=== PATIENT | female | born 1970 | race Caucasian/White ===

== ENCOUNTER 2024-05-03 09:27 | Emergency (ER) | payer BC, SELFPAY ==
[2024-05-03] VITALS (13 sets, daily range): BP systolic 115–136; BP diastolic 80–92; PULSE 74–99; RESP 16; TEMP 36.9; O2SAT 96–100; BMI 30.1
--- NOTE | 2024-05-03 09:49 | CRLHL7_ITS ---
For Patients: As a result of the Century Cures Act, medical imaging exams and procedure reports are released immediately into your electronic medical record. You may view this report before your referring provider. If you have questions, please contact your health care provider. Indication: Chest pain Technique: PA and lateral views of the chest. Comparison: None. Findings: Normal cardiomediastinal silhouette. No focal consolidation, pleural effusions, or visualized pneumothorax. Mild biapical pleural-parenchymal scarring. Right upper quadrant abdominal surgical clips. Impression: No acute cardiopulmonary disease. Dictated by David Nava MD @ 05/03/2024 10:11:18 AM (Electronically Signed)
--- NOTE | 2024-05-03 09:50 | ED.GENADULT ---
HPI - General Adult General Chief complaint: Chest Pain Stated complaint: Chest pain, shortness of breath, dizzy Time Seen by Provider: 05/03/24 09:33 Source: patient Mode of arrival: ambulatory Limitations: no limitations History of Present Illness HPI narrative: 54-year-old female coming in today complaining of chest pain that started approximately 2-3 hours ago. Patient woke up without any problems and then slowly started feeling left-sided chest pain has been present since. Nothing seems to make it better, taking deep breaths makes it worse. She does feel slightly short of breath. She denies feeling diaphoretic. She states that she does feel slightly lightheaded. Patient denies any nausea or vomiting. She denies any recent illness, no recent travel. Past medical history significant for anxiety, vitamin-D deficiency. Patient takes vitamin-D supplementation. He does not take any medication for anxiety. Past surgical history significant for hysterectomy for benign reasons and cholecystectomy. Grandmother had coronary artery disease congestive heart failure in her 50s. Patient denies any tobacco use. Rare alcohol use. She does not exercise regularly. She did not notice her chest pain change going up and down the stairs in her home today. Related Data Home Medications ?Medication ?Instructions ?Recorded ?Confirmed No Known Home Medications 05/03/24 05/03/24 Allergies Allergy/AdvReac Type Severity Reaction Status Date / Time No Known Drug Allergies Allergy Verified 05/03/24 09:39 Review of Systems Status of ROS: Reports: 10 or more systems reviewed and unremarkable except as noted in History and below [facility] Social History Smoking Status: Never smoker How often do you have a drink containing alcohol: monthly or less How often do you have six or more drinks on one occasion: Never AUDIT-C Alcohol total score: 1 Non-prescribed substance use: denies use Exam Narrative: Exam Narrative: Well-nourished well-developed patient in no acute distress. Alert and oriented. Answers questions appropriately. Mood and affect are appropriate. Thoughts are goal oriented and rational. No tangential or magical thinking noted. Patient speaks in full sentences without needing to catch her breath. Patient is not appear uncomfortable, ill or toxic. HEENT: Normocephalic atraumatic. Pupils are equally round reactive to light. Extraocular muscles are intact. Conjunctivae are moist without any icterus noted. Moist mucous membranes. Posterior pharynx is normal. Neck is soft without any lymphadenopathy or thyromegaly. No masses are appreciated. Cardiovascular: Heart is regular rate and rhythm S1 and S2 are present without any murmurs. Lungs: Clear to auscultation bilaterally no wheezes rhonchi or rales are appreciated. Patient has mild discomfort over the left sternal border with deep breaths. Her pain can be reproduced with palpation of the same area. Abdomen: Soft and nontender nondistended with normal bowel sounds. No guarding or rebound. No masses or organomegaly appreciated. Extremities: Bilateral lower extremities are without edema. Normal DP and PT pulses. Skin: Well perfused without any obvious rashes. Const: Vital Signs, click to edit/add: Vital Signs - 24 hr 05/03/24 09:39 05/03/24 09:51 05/03/24 10:03 Temperature 98.4 F Pulse Rate 99 86 Pulse Rate [Pulse Oximeter] 91 Respiratory Rate 16 Blood Pressure Blood Pressure [Ri ght Upper Arm] 136/92 H Pulse Oximetry 97 97 96 Oxygen Delivery Me thod Room Air 05/03/24 10:04 05/03/24 10:15 05/03/24 10:15 Temperature Pulse Rate 91 83 Pulse Rate [Pulse Oximeter] Respiratory Rate Blood Pressure 133/88 Blood Pressure [Ri ght Upper Arm] Pulse Oximetry 98 96 98 Oxygen Delivery Me thod 05/03/24 10:30 05/03/24 10:32 05/03/24 10:45 Temperature Pulse Rate 74 80 84 Pulse Rate [Pulse Oximeter] Respiratory Rate Blood Pressure 115/80 Blood Pressure [Ri ght Upper Arm] Pulse Oximetry 97 97 100 Oxygen Delivery Me thod 05/03/24 11:00 05/03/24 11:01 05/03/24 11:15 Temperature Pulse Rate 77 80 84 Pulse Rate [Pulse Oximeter] Respiratory Rate Blood Pressure 121/83 Blood Pressure [Ri ght Upper Arm] Pulse Oximetry 98 99 99 Oxygen Delivery Me thod 05/03/24 11:30 05/03/24 11:32 Temperature Pulse Rate 89 86 Pulse Rate [Pulse Oximeter] Respiratory Rate 16 Blood Pressure 119/80 Blood Pressure [Ri ght Upper Arm] Pulse Oximetry 99 99 Oxygen Delivery Me thod Course Course ED Course: EKG, read by me, shows normal sinus rhythm with a pulse of 82. Chest x-ray, read by me, does not show any acute pathology. Lab work was unremarkable. Troponin was normal. Repeat EKG and troponin unchanged. Vital Signs Vital signs: Initial Vital Signs Temperature 98.4 F 05/03/24 09:39 Temperature Source Temporal Artery Scan 05/03/24 09:39 Pulse Rate 91 05/03/24 09:39 Respiratory Rate 16 05/03/24 09:39 Blood Pressure 136/92 H 05/03/24 09:39 Blood Pressure Mean 106 H 05/03/24 09:39 Pulse Oximetry 97 05/03/24 09:39 Oxygen Delivery Method Room Air 05/03/24 09:39 Vital Signs Temperature 98.4 F 05/03/24 09:39 Pulse Rate 91 05/03/24 09:39 Respiratory Rate 16 05/03/24 09:39 Blood Pressure 136/92 H 05/03/24 09:39 Pulse Oximetry 97 05/03/24 09:39 Oxygen Delivery Method Room Air 05/03/24 09:39 Temperature 98.4 F 05/03/24 09:39 Pulse Rate 86 05/03/24 11:32 Respiratory Rate 16 05/03/24 11:32 Blood Pressure 119/80 05/03/24 11:32 Pulse Oximetry 99 05/03/24 11:32 Oxygen Delivery Method Room Air 05/03/24 09:39 Medical Decision Making MDM Narrative Medical decision making narrative: 54-year-old female with chest pain, likely chest wall pain given her symptoms and physical exams. We discussed symptomatic treatment with heat, NSAIDs and reasons for follow-up. Lab Data Lab results reviewed: Yes I reviewed the patient's lab results Labs: Lab Results 05/03/24 05/03/24 05/03/24 Range/Units 09:50 09:55 10:12 WBC 3.09 L (4.50-11.00) K/uL RBC 4.66 (4.00-5.20) m/uL Hgb 14.0 (12.0-16.0) gm/dL Hct 42.1 (33.0-51.0) % MCV 90 (80-100) fL MCH 30 (26-34) pg MCHC 33 (32-36) gm/dL RDW Coeff of Nathalie 12.7 (11.5-15.5) % Plt Count 183 (140-440) K/uL Neut % (Auto) 57.6 (42.0-72.0) % Lymph % (Auto) 28.2 (20-44) % [place] % (Auto) 12.0 H (0.0-11.0) % Eos % (Auto) 1.6 (0.0-7.0) % Baso % (Auto) 0.6 (0.0-3.0) % Neut # (Auto) 1.80 (1.7-7.0) K/uL Lymph # (Auto) 0.90 (0.90-2.90) K/uL [place] # (Auto) 0.40 (0.00-0.90) K/UL Eos # (Auto) 0.00 (0.00-0.50) K/uL Baso # (Auto) 0.00 (0.00-0.30) K/uL Abs Immat Gran (auto) 0.00 (0.00-0.30) K/uL Imm/Tot Granulo (auto) 0.0 % ESR 6 (2-20) mm/hr D-Dimer Quant (PE/DVT) 0.28 (0.00-0.50) ug/ml Sodium 139 (135-149) mmol/L Potassium 4.1 (3.6-5.1) mmol/L Chloride 107 (96-114) mmol/L Carbon Dioxide 27 (20-32) mmol/L Anion Gap 5 L (7-15) mEq/L BUN 18 (7-30) mg/dL Creatinine 0.7 (0.5-1.5) mg/dL Estimated Creat Clear 97.04 Estimated GFR 101 ml/min Glucose 101 (60-115) mg/dL Lactate 0.7 (0.5-1.9) mmol/L Calcium 9.4 (8.4-10.6) mg/dL Total Bilirubin 0.7 (0.1-1.5) mg/dL Direct Bilirubin 0.2 (0.0-0.5) mg/dL AST 30 (12-35) U/L ALT 28 (4-35) U/L Alkaline Phosphatase 71 (40-150) U/L Troponin I < 0.01 L (0.01-0.04) ng/mL C-Reactive Protein < 0.5 L (0.5-1.0) mg/dL Total Protein 7.1 (6.0-8.3) g/dL Albumin 4.5 (3.3-5.0) g/dL SARS-CoV-2 (PCR) Negative SARS-CoV-2 (Negative) POC Troponin I 0.00 L (0.01-0.04) ng/ml 05/03/24 Range/Units 11:30 WBC (4.50-11.00) K/uL RBC (4.00-5.20) m/uL Hgb (12.0-16.0) gm/dL Hct (33.0-51.0) % MCV (80-100) fL MCH (26-34) pg MCHC (32-36) gm/dL RDW Coeff of Nathalie (11.5-15.5) % Plt Count (140-440) K/uL Neut % (Auto) (42.0-72.0) % Lymph % (Auto) (20-44) % [place] % (Auto) (0.0-11.0) % Eos % (Auto) (0.0-7.0) % Baso % (Auto) (0.0-3.0) % Neut # (Auto) (1.7-7.0) K/uL Lymph # (Auto) (0.90-2.90) K/uL [place] # (Auto) (0.00-0.90) K/UL Eos # (Auto) (0.00-0.50) K/uL Baso # (Auto) (0.00-0.30) K/uL Abs Immat Gran (auto) (0.00-0.30) K/uL Imm/Tot Granulo (auto) % ESR (2-20) mm/hr D-Dimer Quant (PE/DVT) (0.00-0.50) ug/ml Sodium (135-149) mmol/L Potassium (3.6-5.1) mmol/L Chloride (96-114) mmol/L Carbon Dioxide (20-32) mmol/L Anion Gap (7-15) mEq/L BUN (7-30) mg/dL Creatinine (0.5-1.5) mg/dL Estimated Creat Clear Estimated GFR ml/min Glucose (60-115) mg/dL Lactate (0.5-1.9) mmol/L Calcium (8.4-10.6) mg/dL Total Bilirubin (0.1-1.5) mg/dL Direct Bilirubin (0.0-0.5) mg/dL AST (12-35) U/L ALT (4-35) U/L Alkaline Phosphatase (40-150) U/L Troponin I (0.01-0.04) ng/mL C-Reactive Protein (0.5-1.0) mg/dL Total Protein (6.0-8.3) g/dL Albumin (3.3-5.0) g/dL SARS-CoV-2 (PCR) (Negative) POC Troponin I 0.00 L (0.01-0.04) ng/ml Imaging Data Chest x-ray: Attestation: I have reviewed the pertinent imaging results. Radiologist's impression: Chest pain Technique: PA and lateral views of the chest. Comparison: None. Findings: Normal cardiomediastinal silhouette. No focal consolidation, pleural effusions, or visualized pneumothorax. Mild biapical pleural-parenchymal scarring. Right upper quadrant abdominal surgical clips. Impression: No acute cardiopulmonary disease. ECG Data Attestation: I personally reviewed and interpreted this ECG as follows: Discharge Plan Discharge Clinical Impression: Acute chest wall pain Patient Disposition: Home, Self-Care Condition: Stable Additional Instructions: Your workup was unremarkable today. Likely your pain is coming from an inflammation of the chest wall. Recommend ibuprofen as needed/as directed and heat to the chest wall as needed. Do not apply heat directly to the skin. Prescriptions: No Action No Known Home Medications Follow Up/Referrals: Jessi Marley MD [Staff Physician] - Stand Alone Forms: [employer] Info Instructions
[2024-05-03 10:20] LABS: Lactate* 0.7 mmol/L (0.5-1.9)
[2024-05-03 10:21] LABS: Basophils Percent Auto 0.6 % (0.0-3.0); Eosinophils Percent Auto 1.6 % (0.0-7.0); Hematocrit 42.1 % (33.0-51.0); Lymphocytes Percent Auto 28.2 % (20-44); Mean Corpuscular HGB Conc 33 gm/dL (32-36); Mean Corpuscular Hemoglobin 30 pg (26-34); Mean Corpuscular Volume 90 fL (80-100); Neutrophils Percent Auto 57.6 % (42.0-72.0); Platelet Count* 183 K/uL (140-440); RDW Coefficient of Variation % 12.7 % (11.5-15.5); Red Blood Count 4.66 m/uL (4.00-5.20); White Blood Count* 3.09 K/uL (4.50-11.00)
[2024-05-03 10:26] LABS: Slide Review Reflex No
--- OUTSIDE RECORDS SUMMARY | 2024-05-03 10:26 | XMS_ITS | Referral Summary ---
Author Organization [facility] Address [address] [place] [address] Care Team Providers Care Cut Off Saw Set Up Operator Name Role Phone David Rossi MD Primary Care Provider [phone] Encounters Date Type Department Care Team Description 04/11/2024 Travel 04/11/2024 3:51 PM CDT - 04/11/2024 11:59 PM CDT Hospital Encounter [facility] [address] [facility], [address] [place] [phone] David Rossi MD Visit for screening mammogram Discharge Disposition: Home or Self Care from Last 3 Months Allergies No known active allergies Social History Tobacco Use Types Packs/Day Years Used Date Smoking Tobacco: Never Assessed Adolescent Education Answer Date Record ed Getting School Help Needed Not on file 05/13 Sex and Gender Information Value Date Recorded Sex Assigned at Not on file Gender Identity Not on file Sexual Orientation Not on file Last Filed Vital Signs Vital Sign Reading Time Taken Comments Blood Pressure 139/87 02/22/2023 3:12 PM CDT Pulse 68 02/22/2023 3:12 PM CDT Temperature 36.3 ??C (97.4 ??F) 02/22/2023 1 0:41 AM CDT Respiratory Rate 18 02/22/2023 10:4 1 AM CDT Oxygen Saturation 98% 02/22/2023 3:14 PM CDT Inhaled Oxygen Concentration - - Weight 70.2 kg (154 lb 12.2 oz) 023 10:41 AM CDT Height - - Body Mass Index - - Plan of Treatment Not on file Procedures Procedure Name Priority Date/Time Associated Diagnosis Comments MA SCREENING BILATERAL W/ ALICIA Routine 04/11/2024 4:08 PM CDT Visit for screening mammogram GYNECOLOGIC CYTOLOGY Routine 05/22/2023 3:53 PM CDT Encounter for gynecological examination (general) (routine) without abnormal findings HPV HIGH RISK TYPES DNA CERVICAL Routine 05/22/2023 3:53 PM CDT Encounter for gynecological examination (general) (routine) without abnormal findings BASIC METABOLIC PANEL STAT 02/22/2023 10:56 AM CDT from Last 3 Months or Most Recently Relevant to Health Maintenance Results * MA Screen Bilateral w/Alicia (04/11/2024 4:08 PM CDT) Anatomical Region Laterality Modality Breast Bilateral Mammography Impressions 04/12/2024 7:29 AM CDT IMPRESSION: ACR BI-RADS Category 1: Negative BREAST CANCER SCREENING RECOMMENDATION: Routine yearly mammography beginning at age 40 or as discussed with your provider. The results and recommendations of this examination will be communicated to the patient. Lincoln Velasco MD Narrative 04/12/2024 7:29 AM CDT BILATERAL FULL FIELD DIGITAL SCREENING MAMMOGRAM WITH TOMOSYNTHESIS Performed on: 04/11/24 Compared to: 04/04/2023, 03/31/2022, and 04/05/2021 Technique: ??This study was evaluated with the assistance of Computer-Aided Detection. ??Breast Tomosynthesis was used in interpretation. Findings: The breasts are heterogeneously dense, which may obscure small masses. ??There is no radiographic evidence of malignancy. David Rossi MD IMG MAMMOGRAPHY ABDULAZIZ GIBSON * Gynecologic Cytology (PAP) (05/22/2023 3:53 PM CDT) Interpretation Negative for Intraepithelial Lesion or Malignancy (NILM) 05/24/2023 1:24 PM CDT [facility] Comment Papanicolaou Test Limitations: Cervical cytology is a screening test with limited sensitivity, and regular screening is critical for cancer prevention. Pap tests are primarily effective for the diagnosis/prevent ion of squamous cell carcinoma, not adenocarcinoma or other cancers. 05/24/2023 1:24 PM CDT [facility] Specimen Adequacy Satisfactory for evaluation, endocervical/bermudez sformation zone component absent 05/24/2023 1:24 PM CDT [facility] Clinical Information none 05/24/2023 1:24 PM CDT [facility] LMP/Menopause Date 05/24/2023 1:24 PM CDT [facility] Reflex Testing Yes regardless of result 05/24/2023 1:24 PM CDT [facility] Previous Abnormal? No 05/24/2023 1:24 PM CDT [facility] Previous Abnormal Diagnosis neg/neg hpv 05/24/2023 1:24 PM CDT [facility] Performing Labs The technical component of this testing was completed at [facility] 05/24/2023 1:24 PM CDT [facility] Brushing ENDOCERVICAL STRUCTURE / Unknown 05/22/2023 3:53 PM CDT 05/22/2023 9:02 PM CDT David [facility] - [facility] Special[facility] Lab [address] [facility], [address] [id number], [facility] [phone] * HPV High Risk Types DNA Cervical (05/22/2023 3:53 PM CDT) Other HR HPV Negative Negative 05/27/2023 10:00 AM CDT [facility] HPV16 DNA Negative Negative 05/27/2023 10:00 AM CDT [facility] HPV18 DNA Negative Negative 05/27/2023 10:00 AM CDT [facility] FINAL DIAGNOSIS This patient's sample is negative for HPV DNA. This test was developed and its performance characteristics determined by the [facility], [facility]. It has not been cleared or approved by the FDA. The laboratory is regulated under CLIA as qualified to perform high-complexity testing. This test is used for clinical purposes. It should not be regarded as investigational or for research. METHODOLOGY: The Valentin Jameson 4800 system uses automated extraction, simultaneous amplification of HPV (L1 region) and beta-globin, followed by real time detection of fluorescent labeled HPV and beta globin using specific oligonucleotide probes. The test specifically identifies types HPV 16 DNA and HPV 18 DNA while concurrently detecting the rest of the high risk types (31, 33, 35, 39, 45, 51, 52, 56, 58, 59, 66 or 68). COMMENTS: This test is not intended for use as a screening device for woman under age 30 with normal cervical cytology. Results should be correlated with cytologic and histologic findings. Close clinical followup is recommended. 05/27/2023 10:00 AM CDT [facility] Brushing ENDOCERVICAL STRUCTURE / Unknown Non-blood Collection / Unknown 05/22/2023 3:53 PM CDT 05/25/2023 9:10 AM CDT David Rossi MD LAB - BLOOD ORDERABL ES [facility] [address] [facility], [address] [place] [id number], [facility] [phone] * Basic metabolic panel (BMP) (02/22/2023 10:56 AM CDT) Sodium 140 136 - 145 mmol/L 02/22/2023 11:30 AM CDT LABORATORY Potassium 3.8 3.4 - 5.3 mmol/L 02/22/2023 11:30 AM CDT [facility] Chloride 102 98 - 107 mmol/L 02/22/2023 11:30 AM CDT [facility] Carbon Dioxide (CO2) 26 22 - 29 mmol/L 02/22/2023 11:30 AM CDT [facility] Anion Gap 12 7 - 15 mmol/L 02/22/2023 11:30 AM CDT [facility] Urea Nitrogen 14.3 6.0 - 20.0 mg/dL 02/22/2023 11:30 AM CDT [facility] Creatinine 0.75 0.51 - 0.95 mg/dL 02/22/2023 11:30 AM CDT [facility] Calcium 9.3 8.6 - 10.0 mg/dL 02/22/2023 11:30 AM CDT [facility] Glucose 95 70 - 99 mg/dL 02/22/2023 11:30 AM CDT [facility] GFR Estimate >90 >60 mL/min/1.7 3m2 02/22/2023 11:30 AM CDT [facility] Blood STRUCTURE OF RIGHT UPPER LIMB / Unknown Venipuncture / Unknown 02/22/2023 10:56 AM CDT 02/22/2023 11:04 AM CDT Babs Bales MD LAB - BLOOD ORDERABL ES [facility] [address] (1st floor, no room number) [place] [address], [facility] [phone] from Last 3 Months or Most Recently Relevant to Health Maintenance Care Teams Cut Off Saw Set Up Operator Relationship Specialty Start Date End Date David Rossi MD [address] [place] [address] PCP - General stringed instrument tuner 05/31/16
--- OUTSIDE RECORDS SUMMARY | 2024-05-03 10:26 | XMS_ITS | Clinical Summary ---
Author Organization [facility] Address [address] [place] [address] Care Team Providers Care Return Clerk Name Role Phone David Rossi MD Primary Care Provider [phone] Allergies No known active allergies Encounters Date Type Department Care Team Description 04/11/2024 3:51 PM CDT - 04/11/2024 11:59 PM CDT Hospital Encounter [facility] [address] [facility], [address] [place] [phone] David Rossi MD Visit for screening mammogram Discharge Disposition: Home or Self Care 04/11/2024 Travel from Last 3 Months Social History Tobacco Use Types Packs/Day Years [...] Mass Index - - Plan of Treatment Health Maintenance Due Date Last Done Comments ADVANCE CARE PLANNING 1968 ANNUAL REVIEW OF HM ORDERS 1968 CT COLONOGRAPHY 1968 FLEX SIG 1968 sDNA (Cologuard) 1968 HIV SCREENING 1983 HEPATITIS C SCREENING 1986 HEPATITIS B IMMUNIZATION (1 of 3 - 19+ 3-dose series) 1987 LIPID 2008 FIT 11/09/2012 11/10/2011 ZOSTER IMMUNIZATION (1 of 2) 2018 YEARLY PREVENTIVE VISIT 04/25/2023 04/25/20 22, 04/15/2021, 03/09/2020 PHQ-2 (once per calendar year) 2023 COVID-19 Vaccine ( season) 2024 INFLUENZA VACCINE (#1) 2024 6, 05/20/2015, 07/03/2014, Additional history exists GLUCOSE 02/22/2026 02/22/2023 MAMMO SCREENING 04/11/2026 04/11/2024, 03/15, 03/31/2022, Additional history exists DTAP/TDAP/TD IMMUNIZATION (3 - Td or Tdap) 09/14/2026 09/14/2016, 03/15/2006, 06/28/1999 HPV TEST 05/22/2028 05/22/2023, 02/12, 03/09/2020 PAP 05/22/2028 05/22/2023, 02/12, 03/09/2020 COLONOSCOPY 04/03/2030 04/03/2020, 03/31/2020 COLORECTAL CANCER SCREENING 04/03/2030 HPV IMMUNIZATION Aged Out No longer e ligible based on patient's age to complete this topic MENINGITIS IMMUNIZATION Aged Out No l onger eligible based on patient's age to complete this topic Pneumococcal Vaccine: Pediatrics (0 to 5 Years) and At-Risk Patients (6 to 64 Years) Aged Out No longer eligible based on patient's age to complete this topic RSV MONOCLONAL ANTIBODY Aged Out No l onger eligible based on patient's age to complete this topic Procedures Procedure Name Priority Date/Time Associated Diagnosis Comments MA SCREENING BILATERAL W/ ALICAI Routine 04/11/2024 4:08 PM CDT Visit for [...] component of this testing was completed at [facility] 05/24/2023 1:24 PM CDT [facility] Brushing ENDOCERVICAL STRUCTURE / Unknown 05/22/2023 3:53 PM CDT 05/22/2023 9:02 PM CDT David KC - [facility] Specialty Lab [address] [facility], [address] [phone], [place] [phone] * HPV High Risk Types DNA Cervical (05/22/2023 3:53 PM CDT) Other HR HPV Negative Negative 05/27/2023 10:00 AM CDT [facility] HPV16 DNA Negative Negative 05/27/2023 10:00 AM CDT [facility] HPV18 DNA Negative Negative 05/27/2023 10:00 AM CDT [facility] FINAL DIAGNOSIS This patient's sample is negative for HPV DNA. This test was developed and its performance characteristics determined by the [facility], [facility]. It has not been [...] followup is recommended. 05/27/2023 10:00 AM CDT [email or web address] Brushing ENDOCERVICAL STRUCTURE / Unknown Non-blood Collection / Unknown 05/22/2023 3:53 PM CDT 05/25/2023 9:10 AM CDT David Rossi MD LAB - BLOOD ORDERABL ES [email or web address] [address] [facility], [address] [place] [id number] [phone] * Basic metabolic panel (BMP) (02/22/2023 10:56 AM CDT) Sodium 140 136 - 145 mmol/L 02/22/2023 11:30 AM CDT LABORATORY Potassium 3.8 3.4 - 5.3 mmol/L 02/22/2023 11:30 AM CDT LABORATORY Chloride 102 98 - 107 mmol/L 02/22/2023 11:30 AM CDT LABORATORY Carbon Dioxide (CO2) 26 22 - 29 mmol/L 02/22/2023 11:30 AM CDT LABORATORY Anion Gap 12 7 - 15 mmol/L 02/22/2023 11:30 AM CDT [facility] Urea Nitrogen 14.3 6.0 - 20.0 mg/dL 02/22/2023 11:30 AM CDT LABORATORY Creatinine 0.75 0.51 - 0.95 mg/dL 02/22/2023 11:30 AM CDT LABORATORY Calcium 9.3 8.6 - 10.0 mg/dL [...] LAB - BLOOD ORDERABL ES [facility] [address] [facility] Lab (1st floor, no room number) [place] [address], [place] [phone] from Last 3 Months or Most Recently Relevant to Health Maintenance Care Teams Return Clerk Relationship Specialty Start Date End Date David Rossi MD [address] [facility] [address] [place] [phone] PCP - General spot welder 05/31/16
--- OUTSIDE RECORDS SUMMARY | 2024-05-03 10:26 | XMS_ITS | Clinical Summary ---
Author Organization [facility] Address [place], [place] [address] Care Team Providers Care Security Installation Technician Name Role Phone [facility] Primary Care Provider Unavailabl e Allergies Active Allergy Reactions Criticality Noted Date Comments Amoxicillin-Pot Clavulanate Diarrhea 11/08/19 09 Esomeprazole Diarrhea 11/10/2008 Omeprazole Diarrhea 06/16/2023 Oxycodone Insomnia 06/01/2010 Medications Medication Sig Dispensed Refills Start Date End Date Status cholecalciferol, Vitamin D3, (Vitamin D-3) 5,000 unit tab tablet Active famotidine (PEPCID) 20 mg tabletIndications:Chr onic GERD Take 1 Tablet (20 mg) by mouth two times daily. 180 Tablet 3 02/02/2023 Active RABEprazole (ACIPHEX) 20 mg tabletIndications:Chr onic GERD Take 1 Tablet (20 mg) by mouth once daily. 100 Tablet 3 02/02/2023 Active Active Problems Problem Noted Date Diagnosed Date Low back pain radiating to left leg 01/29/2015 Displacement of cervical int ervertebral disc without myelopathy 08/20/2012 Cervical radiculitis 08/20/2012 Vitamin D deficiency 06/01/2010 Esophageal reflux 01/26/2007 Sciatica 01/26/2007 Anxiety state, unspecified 01/10/2007 Major depressive disorder, r ecurrent episode, in full remission 12/26/2006 FATIGUE AND MALAISE Resolved Problems Problem Noted Date Diagnosed Date Resolved Date UPPER RESPIRATORY INFECTION - ACUTE 09/12/2005 12/27/2005 EXAMINATION, ROUTINE MEDICAL 08/28/2002 12/27/2005 Encounters Date Type Department Care Team Description 03/14/2024 1:00 PM CDT Ancillary Procedure [facility] [address] [facility] [place] [address] 03/14/2024 12:30 PM CDT Ancillary Procedure [facility] [address] [place] [address] 03/14/2024 Travel 03/05/2024 Transcribe Orders [facility] [address] [place] [address] Manjinder Monterroso MD 02/01/2024 10:57 AM CDT - 02/01/2024 11:59 PM CDT Hospital Encounter [facility] [place] [address] [facility] [address] [place] [address] Manjinder Monterroso MD Lonetti, Jennifer D, PT 02/01/2024 Travel from Last 3 Months Immunizations Name Administration Dates Next Due AMB Influenza, IIV3 (Age >=3 years)(Flu Clinic Only) 06/10/2011 Influenza Virus, Unspecified 09/17/2020( Deferred: Patient Refused),05/22/2016,07/03/2014 Influenza, IIV3 (Age 6-35 mos) 06/10/2011 Influenza, IIV3 (Age >=3 years) 07/04/2012,06/01,07/01/2008 Influenza, IIV4 05/20/2015 Rabavert 03/21/2022,,03/10/2022,2021 Td (Age >=7 Years) 09/14/2016,06/28/1999 Tdap 03/15/2006 Family History Medical History Relation Name Comments GI Disease Father Diverticulitis Hypertension Father Stroke Maternal Grandfather Heart failure Maternal Grandmother GI Disease Mother IBS Stroke Paternal Grandfather Hypertension Paternal Grandmother Lung cancer Paternal Grandmother Relation Name Status Comments Father Alive Half-Brother Alive Maternal Grandfather Maternal Grandmother Mother Alive Paternal Grandfather Paternal Grandmother Sister Alive Social History Tobacco Use Types Packs/Day Years Used Date Smoking Tobacco: Never Smokeless Tobacco: Never Tobacco Cessation:Counseling Given: Not Answered Alcohol Use Standard Drinks/Week Comments Not Currently 0 (1 standard drink = 0.6 oz pur e alcohol) rare PHQ-2 Answer Date Recorded PHQ-2 TOTAL SCORE 0 02/02/2023 Social Connections Answer Date Recorded Frequency of Communication with Friends and Fami ly Not on file 08/14/2021 Financial Resource Strain Answer Date R ecorded Difficulty of Paying Living Expenses Not on file 08/14/2021 Difficulty of Paying Living Expenses Not on file 08/14/2021 Sex and Gender Information Value Date Recorded Sex Assigned at Not on file Gender Identity Not on file Sexual Orientation Not on file Obstetrics History Para Term AB IAB SAB Ectopic Multiple Livin g Live Births 3 3 3 0 0 0 0 0 0 3 Date Outcome GA Total Labor Labor//3rd Weight Sex Type Anes PTL Elvira A1 A5 Name Clin Term Term Term Last Filed Vital Signs Vital Sign Reading Time Taken Comments Blood Pressure 116/75 06/16/2023 3:30 PM CDT Pulse 75 06/16/2023 3:30 PM CDT Temperature 36.8 ??C (98.3 ??F) 03/07/2022 3:27 PM CD T Respiratory Rate 14 05/19/2023 10:30 AM CDT Oxygen Saturation 97% 06/16/2023 3:30 PM CDT Inhaled Oxygen Concentration - - Weight 69 kg (152 lb 1.9 oz) 06/16/2023 3:30 PM CDT Height 163.2 cm (5' 4.25) 02/02/2023 1:19 PM CD T Body Mass Index 25.91 02/02/2023 1:19 PM CDT Plan of Treatment Health Maintenance Due Date Last Done Comments HIV for age 15-65 1983 Zoster (shingles) series for age 50+ (1 of 2) 2018 Mammogram for age 45-75 03/31/2023 03/31/20 (Verified in Care Everywhere or Patient Record), 04/05/2021 (Verified in Care Everywhere or Patient Record), 08/29/2018, Additional history exists BMI (ht and wt on same day) for age 18+ 02/03/2024 02/02/2023, 02/22/2022, 12/31/2021, Additional history exists Depression screening for age 12+ 02/04/2024 02/03/2023, 02/02/2023, 09/18/2020, Additional history exists COVID-19 vaccine series (2022- season) 2024 Influenza for age 50-64 04/14/2024 05/22/20 16, 05/20/2015, 07/03/2014, Additional history exists Tetanus booster 09/14/2026 09/14/2016, 08/2016 (Completed outside of [facility]), 03/15/2006, Additional history exists Lipids for age 45-75 02/16/2028 02/15/2023, 02/22/2022, 09/14/2018 (Completed outside of [facility]), Additional history exists Colonoscopy through age 75 04/03/203004/03, 04/03/2020, 04/03/2020, Additional history exists Tdap Completed 03/15/2006 Pap test for age 21-65 Discontinued 1 (Completed outside of [facility]) Fecal testing non-DNA (FIT,FOBT,iFOBT) for age 45-75 Discontinued 11/10/2011, 07/19/2004, 07/19/2004, Additional history exists Hepatitis C screening for age 18-79 Completed 02/22/2022 Pneumococcal series for age 6-64 Aged Out No longer eligible based on patient's age to complete this topic Procedures Procedure Name Priority Date/Time Associated Diagnosis Comments MR SPINE LUMBAR WO Routine 03/14/2024 1: 26 PM CDT Tarsal tunnel syndrome, left lower limb Other instability, left ankle Sprain of left ankle, unspecified ligament, subsequent encounter Plantar fascial fibromatosis Disorder of ligament, left foot Disorder of ligament, right foot Tarsal tunnel syndrome, right lower limb XR SPINE LUMBAR MINIMUM 4 VIEWS Routine 03/14/2024 12:29 PM CDT Tarsal tunnel syndrome, left lower limb Other instability, left ankle Sprain of left ankle, unspecified ligament, subsequent encounter Plantar fascial fibromatosis Disorder of ligament, left foot Disorder of ligament, right foot Tarsal tunnel syndrome, right lower limb LIPID PANEL W REFLEX MEASURED LDL Routine 02/15/2023 8:31 AM CDT Lipid screening ANTI HCV Routine 02/22/2022 8:47 AM CDT Need for hepatitis C screening test COLONOSCOPY SCREENING Routine 04/03/2020 9:27 AM CDT Encounter for screening colonoscopy SCAN-MAMMOGRAPHY REPORT 08/29/2018 12:00 AM INDUSTRIAL HEALTH ENGINEER OCCULT BLOOD IFOBT STOOL Routine 11/10/2011 2:42 PM CDT Abdominal pain, epigastric from Last 3 Months or Most Recently Relevant to Health Maintenance Results * MR SPINE LUMBAR WO (03/14/2024 1:26 PM CDT) Anatomical Region Laterality Modality Spine, LUMBAR SPINE Magnetic Res onance 03/14/2024 1:26 PM CDT Impressions 03/15/2024 8:05 AM CDT 1. ??Mild narrowing of the lateral recesses at L4-L5. 2. ??No high-grade spinal canal or neuroforaminal narrowing. 3. ??Modic type II changes at L4-L5. Narrative 03/15/2024 8:05 AM CDT For Patients: As a result of the Century Cures Act, medical imaging exams and procedure reports are released immediately into your electronic medical record. You may view this report before your referring provider. If you have questions, please contact your health care provider. EXAM: MR SPINE LUMBAR WO LOCATION: [facility] DATE: 03/14/2024 INDICATION: Tarsal Tunnel Syndrome, Left Lower Limb Other Instability, Left Ankle Sprain Of Left Ankle, Unspecified Ligament, Subsequent Encounter Plantar Fascial Fibromatosis Disorder Of Ligament, Left Foot Disorder Of Ligament, Right Foot Tarsal Tunnel Syndrom COMPARISON: 03/14/24 XR, 01/29/2015 XR TECHNIQUE: Routine Lumbar Spine MRI without IV contrast. FINDINGS: Nomenclature is based on 5 lumbar type vertebral bodies. The conus ends at distal L1. Normal sagittal alignment. Vertebral body heights are maintained. Nonpathologic marrow signal. No MRI evidence for pars defects. Modic type II changes at L4-L5. The posterior paraspinal soft tissues are grossly within normal limits. The visualized bony pelvis grossly within normal limits. T12-L1: Normal disc height and signal. No herniation. Normal facets. No spinal canal or neural foraminal stenosis. L1-L2: Normal disc height and signal. Shallow broad-based disc bulge. Mild bilateral facet arthropathy. No spinal canal or neural foraminal stenosis. L2-L3: Normal disc height and signal. Shallow broad-based disc bulge. Mild bilateral facet arthropathy. No spinal canal or neural foraminal stenosis. L3-L4: Normal disc height and signal. Small broad-based disc bulge. Mild to moderate bilateral facet arthropathy. No spinal canal or neural foraminal stenosis. L4-L5: Moderate intervertebral disc height loss. Loss of the normal T2 signal within the disc. Broad-based disc bulge with superimposed central disc protrusion. Moderate bilateral facet arthropathy. Mild narrowing of the lateral recesses. No spinal canal narrowing. No neuroforaminal narrowing. L5-S1: Normal disc height and signal. Shallow broad-based disc bulge. Moderate bilateral facet arthropathy. No spinal canal or neural foraminal stenosis. Procedure Note Haseeb Pacheco MD - 03/15/2024 For Patients: As a result of the Cures Act, medical imagingexams and procedure reports are released immediately into your electronicmedical record. You may view this report before your referring provider.If you have questions, please contact your health care provider. EXAM: MR SPINE LUMBAR WO LOCATION: [facility] DATE: 03/14/2024 INDICATION: Tarsal Tunnel Syndrome, Left Lower Limb Other Instability,Left Ankle Sprain Of Left Ankle, Unspecified Ligament, SubsequentEncounter Plantar Fascial Fibromatosis Disorder Of Ligament, Left FootDisorder Of Ligament, Right Foot Tarsal Tunnel Syndrom COMPARISON: 03/14/24 XR, 01/29/2015 XR TECHNIQUE: Routine Lumbar Spine MRI without IV contrast. FINDINGS: Nomenclature is based on 5 lumbar type vertebral bodies. The conus ends atdistal L1. Normal sagittal alignment. Vertebral body heights aremaintained. Nonpathologic marrow signal. No MRI evidence for pars defects.Modic type II changes at L4-L5. The posterior paraspinal soft tissues aregrossly within normal limits. The visualized bony pelvis grossly withinnormal limits. T12-L1: Normal disc height and signal. No herniation. Normal facets. Nospinal canal or neural foraminal stenosis. L1-L2: Normal disc height and signal. Shallow broad-based disc bulge. Mildbilateral facet arthropathy. No spinal canal or neural foraminalstenosis. L2-L3: Normal disc height and signal. Shallow broad-based disc bulge. Mildbilateral facet arthropathy. No spinal canal or neural foraminal stenosis. L3-L4: Normal disc height and signal. Small broad-based disc bulge. Mildto moderate bilateral facet arthropathy. No spinal canal or neuralforaminal stenosis. L4-L5: Moderate intervertebral disc height loss. Loss of the normal Y5amtzsi within the disc. Broad-based disc bulge with superimposed centraldisc protrusion. Moderate bilateral facet arthropathy. Mild narrowing ofthe lateral recesses. No spinal canal narrowing. No neuroforaminalnarrowing. L5-S1: Normal disc height and signal. Shallow broad-based disc bulge.Moderate bilateral facet arthropathy. No spinal canal or neural foraminalstenosis. IMPRESSION: 1. Mild narrowing of the lateral recesses at L4-L5. 2. No high-grade spinal canal or neuroforaminal narrowing. 3. Modic type II changes at L4-L5. Manjinder Monterroso MD MR * XR SPINE LUMBAR MINIMUM 4 VIEWS (03/14/2024 12:29 PM CDT) Anatomical Region Laterality Modality Spine, LUMBAR SPINE Computed Rad iography 03/14/2024 12:2 9 PM CDT Impressions 03/14/2024 4:27 PM CDT Preserved vertebral body heights and alignment. No evidence of dynamic instability. Preserved disc spaces for patient age. Nonfocal extraspinal structures. Narrative 03/14/2024 4:27 PM CDT For Patients: As a result of the Century Cures Act, medical imaging exams and procedure reports are released immediately into your electronic medical record. You may view this report before your referring provider. If you have questions, please contact your health care provider. EXAM: XR SPINE LUMBAR MINIMUM 4 VIEWS LOCATION: [facility] DATE: 03/14/2024 INDICATION: Tarsal Tunnel Syndrome, Left Lower Limb Other Instability, Left Ankle Sprain Of Left Ankle, Unspecified Ligament, Subsequent Encounter Plantar Fascial Fibromatosis Disorder Of Ligament, Left Foot Disorder Of Ligament, Right Foot Tarsal Tunnel Syndrome, Right Lower Limb COMPARISON: None. Procedure Note Edmond Hancock, DO - 03/14/2024 For Patients: As a result of the Century Cures Act, medical imagingexams and procedure reports are released immediately into your electronicmedical record. You may view this report before your referring provider.If you have questions, please contact your health care provider. EXAM: XR SPINE LUMBAR MINIMUM 4 VIEWS LOCATION: [facility] DATE: 03/14/2024 INDICATION: Tarsal Tunnel Syndrome, Left Lower Limb Other Instability,Left Ankle Sprain Of Left Ankle, Unspecified Ligament, SubsequentEncounter Plantar Fascial Fibromatosis Disorder Of Ligament, Left FootDisorder Of Ligament, Right Foot Tarsal Tunnel Syndrome, Right LowerLimb COMPARISON: None. IMPRESSION: Preserved vertebral body heights and alignment. No evidence of dynamicinstability. Preserved disc spaces for patient age. Nonfocal extraspinalstructures. Manjinder Monterroso MD GENERAL IMAGI NG * LIPID PANEL W REFLEX MEASURED LDL (02/15/2023 8:31 AM CDT) [facility] CHOLESTEROL,TOTAL 184 100 - 199 mg/dL 02/15/2023 6:39 PM CDT [facility] Comment: Cholesterol, Total Reference Ranges Desirable <200 mg/dL Borderline 200-239 mg/dL High >=240 mg/dL TRIGLYCERIDES 124 <150 mg/dL 02/15/2023 6:39 PM CDT [facility] HDL CHOLESTEROL 58 >40 mg/dL 6:39 PM CDT [facility] NON-HDL CHOLESTEROL 126 <145 mg/dl 02/15/2023 6:39 PM CDT [facility] CHOL/HDL RATIO 3.17 <4.50 02/15/2023 6:39 PM CDT [facility] LDL CHOLESTEROL 101 <=130 mg/dL 02/15/2023 6:39 PM CDT [facility] VLDL CHOLESTEROL 25 <=30 mg/dL 02/15/2023 6:39 PM CDT [facility] PROVIDER ORDERED STATUS FASTING 02/15/2023 6:39 PM CDT [facility] Blood BLOOD SPECIMEN / Unknown Venipuncture / Unknown 02/15/2023 8:31 AM CDT 02/15/2023 8:31 AM CDT Joselyn Strong NP CHEMISTRY [facility] [address] [place] [address], * ANTI HCV (02/22/2022 8:47 AM CDT) HEPATITIS C ANTIBODY Non-React jennifer Non-React jennifer 02/22/2022 9:00 PM CDT [facility] Comment:Antibodies to HCV no t detected; does not exclude the possibility of exposure to HCV. Blood BLOOD SPECIMEN / Unknown Venipuncture / Unknown 02/22/2022 8:47 AM CDT 02/22/2022 8:48 AM CDT Joselyn Strong NP SEND OUTS [facility] [address] [place] [address], * COLONOSCOPY SCREENING (04/03/2020 9:27 AM CDT) Prachi Malone DO GI PROCEDURE ORD * SCAN-MAMMOGRAPHY REPORT (08/29/2018 12:00 AM INDUSTRIAL HEALTH ENGINEER) Anatomical Region Laterality Modality Other Scanner OTHER * OCCULT BLOOD IFOBT STOOL (11/10/2011 2:42 PM CDT) STOOL BLOOD ,IFOBT Negative (Negative) [facility] Stool specimen (specimen) STOOL SPECIMEN / Unknown 11/10/2011 2:42 PM CDT 11/10/2011 2:40 PM CDT Heather Cleaning MD LABORATORY [facility] [address] [place] [id number] from Last 3 Months or Most Recently Relevant to Health Maintenance Advance Directives * Full Code (Latest Code Status on File) Date Activated Date Inactivated Comments 12/12/2008 1:56 PM 12/15/2008 3:10 PM Care Teams Security Installation Technician Relationship Specialty Start Date End Date [facility] PCP - General 02/22/22
--- OUTSIDE RECORDS SUMMARY | 2024-05-03 10:26 | XMS_ITS | Encounter Summary ---
Author Organization [facility] Address [address] [place] [id number] Care Team Providers Care Supervising Librarian Name Role Phone David Rossi MD Primary Care Provider Encounter Details Date Type Department Care Team (Latest Contact Info) Description 04/11/2024 Travel Social History Tobacco Use Types Packs/Day Years Used Date Smoking Tobacco: Never Assessed Adolescent Education Answer Date Record ed Getting School Help Needed Not on file 05/13 Sex and Gender Information Value Date Recorded Sex Assigned at Not on file Gender Identity Not on file Sexual Orientation Not on file documented as of this encounter Plan of Treatment Not on file documented as of this encounter Visit Diagnoses Not on filedocumented in this encounter Care Teams Supervising Librarian Relationship Specialty Start Date End Date David Rossi MD [address] [facility] [address] [place] [phone] PCP - General helper chicken farm 05/31/16 documented as of this encounter
--- OUTSIDE RECORDS SUMMARY | 2024-05-03 10:26 | XMS_ITS | Encounter Summary ---
Author Organization [place] Address [address] [place] [id number] Care Team Providers Care Knit Tubing Dyer Name Role Phone David Rossi MD Primary Care Provider Reason for Referral * Diagnostic Imaging Mammo (Routine) - Pending Review Specialty Diagnoses / Procedures Referred By Hugo oliva Referred To Contact Radiology. Diagnoses Visit for screening mammogram Procedures MA Screen Bilateral w/David Au MD [address] [place] [phone] Referral ID Status Reason Start Date Expiration Date V isits Requested Visits Authorized [id number] Pending Review 03/06/2024 03/06/2025 1 1 Reason for Visit * Diagnostic Imaging Mammo (Routine) - Pending Review Specialty Diagnoses / Procedures Referred By Hugo oliva Referred To Contact Radiology. Diagnoses Visit for screening mammogram Procedures MA Screen Bilateral w/David Au MD [address] [place] [phone] Referral ID Status Reason Start Date Expiration Date V isits Requested Visits Authorized [id number] Pending Review 03/06/2024 03/06/2025 1 1 Encounter Details Date Type Department Care Team (Latest Contact Info) Description 04/11/2024 3:51 PM CDT - 04/11/2024 11:59 PM CDT Hospital Encounter [facility] [address] [place] [address] David Rossi MD [address] [facility] [address] [place] [phone] Visit for screening mammogram Discharge Disposition: Home or Self Care Social History Tobacco Use Types Packs/Day Years [...] on file documented as of this encounter Procedures Procedure Name Priority Date/Time Associated Diagnosis Comments MA SCREENING BILATERAL W/ ALIICA Routine 04/11/2024 4:08 PM CDT Visit for screening mammogram documented in this encounter Results * MA Screen Bilateral w/Alicia (04/11/2024 [...] of malignancy. David Rossi MD IMG MAMMOGRAPHY ORDE ARTHUR documented in this encounter Visit Diagnoses Diagnosis Visit for screening mammogram Other screening mammogram documented in this encounter Care Teams Knit Tubing Dyer Relationship Specialty Start Date End Date David Rossi MD [address] [facility] [address] [place] [address] PCP - General mobile sales consultant 05/31/16 documented as of this encounter
[2024-05-03 10:36] LABS: Albumin* 4.5 g/dL (3.3-5.0); Chloride* 107 mmol/L (96-114)
[2024-05-03 10:37] LABS: Potassium* 4.1 mmol/L (3.6-5.1); Sodium* 139 mmol/L (135-149)
[2024-05-03 10:39] LABS: Creatinine* 0.7 mg/dL (0.5-1.5); Est. Creatinine Clearance* 97.04; Estimated Glomerular Filt Rate 101 ml/min
[2024-05-03 10:40] LABS: Alanine Aminotransferase* 28 U/L (4-35); Alkaline Phosphatase* 71 U/L (40-150); Anion Gap 5 mEq/L (7-15); Aspartate Amino Transferase* 30 U/L (12-35); Bilirubin Direct* 0.2 mg/dL (0.0-0.5); Bilirubin Total* 0.7 mg/dL (0.1-1.5); Blood Urea Nitrogen* 18 mg/dL (7-30); Calcium* 9.4 mg/dL (8.4-10.6); Carbon Dioxide* 27 mmol/L (20-32); Glucose* 101 mg/dL (60-115); Total Protein* 7.1 g/dL (6.0-8.3)
[2024-05-03 10:43] LABS: C Reactive Protein* < 0.5 mg/dL (0.5-1.0)
[2024-05-03 10:48] LABS: D Dimer Quantitative* 0.28 ug/ml (0.00-0.50)
[2024-05-03 10:49] LABS: SARS PCR* Negative SARS-CoV-2 (Negative)
[2024-05-03 10:53] LABS: Troponin I* < 0.01 ng/mL (0.01-0.04)
[2024-05-03 11:07] LABS: Erythrocyte SedimentationRate* 6 mm/hr (2-20)
== END 2024-05-03 12:19 | disposition home or self-care (01) ==
PROVIDERS: Emergency Provider Family Medicine
DX: R07.89 Other chest pain (principal)
CPT/HCPCS: 36415; 71046; 80048; 80076; 83605; 84484; 85025; 85379; 85651; 86140; 87635; 93005; 94761; 99284; 99285